=== PATIENT | male | born 1995 | race Caucasian/White ===

== ENCOUNTER 2017-02-16 00:06 | Emergency (ER) | payer BC ==
[2017-02-16] MEDS ORDERED: ONDANSETRON 4 MG/2 ML VIAL IVP ONE (00:32)
[2017-02-16] MEDS ORDERED: fentaNYL 100 MCG/2 ML INJ IVP ONE (00:32)
[2017-02-16] MEDS ORDERED: fentaNYL 100 MCG/2 ML INJ ONE (00:33)
[2017-02-16] MEDS ORDERED: ONDANSETRON 4 MG/2 ML VIAL ONE (00:33)
--- NOTE | 2017-02-16 01:05 | EDPHY ---
H & P Stated Complaint: Right Knee Dislocation Time Seen by Provider: 02/16/17 00:15 HPI/ROS: Chief Complaint: Right knee pain HPI: 21-year-old male was at a club dancing tonight when he twisted his leg and felt a pop in his right knee with severe pain. He noticed significant deformity and. That his kneecap was out of place. He has been unable to walk since. He has been drinking several beers this evening. Last was about 45 minutes prior to arrival. Patient also last ate about 4 hours ago. Denies prior injuries. Did not fall. Did not hit his head. ROS: 10 point Review of Systems is negative except as noted in the HPI. PMH: None Medications: None Allergies: None Social History: No smoking, occasional alcohol, no recreational drug use Family History: non-contributory Physical Exam: Gen: Awake, Alert, No Distress HEENT: Nose: no rhinorrhea Eyes: PERRLA, EOMI Mouth: Moist mucosa Neck: Supple, no JVD Chest: nontender, lungs clear to auscultation Heart: S1, S2 normal, no murmur Abd: Soft, non-tender, no guarding Back: no CVA tenderness, no midline tenderness Ext: no edema, right knee is held in flexion. There is a marked deformity of his patella consistent with patellar dislocation. DP and PT pulses are normal. Skin: no rash Neuro: CN II-XII intact, Sensation grossly intact, Strength 5/5 in bilateral upper and lower extremities - Personal History Current Tetanus Diphtheria and Acellular Pertussis (TDAP): Yes - Medical/Surgical History Hx Asthma: No Hx Chronic Respiratory Disease: No Hx Diabetes: No Hx Cardiac Disease: No Hx Renal Disease: No Hx Cirrhosis: No Hx Alcoholism: No Hx HIV/AIDS: No Hx Splenectomy or Spleen Trauma: No Other PMH: adhd,pneumonia, DEPRESSION, anxiety, bipolar - Social History Smoking Status: Never smoked Constitutional: Initial Vital Signs Temperature (C) 36.7 C 02/16/17 00:10 Heart Rate 87 02/16/17 00:10 Respiratory Rate 20 02/16/17 00:10 Blood Pressure 122/87 H 02/16/17 00:10 O2 Sat (%) 97 02/16/17 00:10 O2 Delivery Mode Room Air Allergies/Adverse Reactions: No Known Allergies Allergy (Unverified 12/13/15 17:10) Home Medications: Medication Instructions Recorded buPROPion XL [Wellbutrin 150mg XL] 300 mg PO DAILY 04/29/16 traZODone [traZODONE 100MG (*)] 100 mg PO HS 04/29/16 Dextroamphetamine Sulfate 10 mg PO TID 04/30/16 [Dexedrine] PARoxetine CR [Paxil Cr 25mg (*)] 25 mg PO DAILY 04/30/16 PARoxetine HCL [Paxil Cr] 12.5 mg PO DAILY 04/30/16 Medical Decision Making Procedures: Procedure: Procedural sedation. A pre-sedation evaluation was completed on the patient at 0100. Patient is an appropriate candidate for procedural sedation. The risks of the sedation were discussed with the patient. A time out was completed. The patient was sedated with ketamine, 100 mg. The patient was monitored with continuous pulse oximetry and radiation monitor. There were no complications and no significant hypoxemia. I remained at the bedside for the sedation. The total time I spent in the procedural sedation was 20 minutes. Procedure: Dislocation reduction. The dislocation of the right patella was reduced using leg extension and medial pressure technique without complications. Post reduction the patient's neurovascular exam is normal.Post reduction x-ray demonstrates reduction of the joint to the anatomic position. The procedure was performed by myself. ED Course/Re-evaluation: Patient tolerated sedation without any complications. Postreduction x-rays revealed no abnormalities. He was placed in a knee immobilizer and given crutches and instructions to follow up with Orthopedics next week. - Data Points Medications Given: Discontinued Medications Fentanyl (Sublimaze) 100 mcg IVP EDNOW ONE Stop: 02/16/17 00:33 Last Admin: 02/16/17 00:38 Dose: 100 mcg Ondansetron HCl (Zofran) 4 mg IVP EDNOW ONE Stop: 02/16/17 00:33 Last Admin: 02/16/17 00:39 Dose: 4 mg Departure - Departure Disposition: Home, Routine, Self-Care Clinical Impression: Patellar dislocation Condition: Good Instructions: Patellar Dislocation (ED), Knee Immobilizer (ED), Crutch Instructions (ED) Additional Instructions: Follow up with Orthopedics in 3-4 days for re-evaluation. Return to the emergency depart for increasing pain, numbness, tingling, or any other concerns. Referrals: Patient,NotPresent [Unknown] - As per Instructions Christiano Barrientos MD [Medical Doctor] - As per Instructions
[2017-02-16] MEDS ORDERED: PROPOFOL 200 MG/20 ML VIAL ONE ×2 (01:35→02:04)
[2017-02-16] MEDS ORDERED: KETAMINE 100 MG/10 ML SYR IVP ONE ×2 (02:04→02:11)
[2017-02-16] MEDS ORDERED: MIDAZOLAM 2 MG/2 ML VIAL ONE (02:12)
[2017-02-16] MEDS ORDERED: MIDAZOLAM 2 MG/2 ML VIAL IVP ONE (02:20)
[2017-02-16 03:10] VITALS: RESP 18
[2017-02-16 03:37] VITALS: BP 147/78; PULSE 105; TEMP 99.3; O2SAT 92
== END 2017-02-16 03:40 | disposition home or self-care (01) ==
LOC: EDUNIT#
PROC: 0QSDXZZ Reposition Right Patella, External Approach (ICD-10-PCS; principal; 2017-02-16)
DX: S83.014A Lateral dislocation of right patella, initial encounter (principal); X58.XXXA Exposure to other specified factors, initial encounter
CPT/HCPCS: 96374; J2250; J2405; J2704; J3010; L1830

== ENCOUNTER 2017-07-13 21:24 | Emergency (ER) | payer BC ==
[2017-07-13 21:30] VITALS: O2SAT 97
[2017-07-13] MEDS ORDERED: CEPHALEXIN 500MG PREPACK#4 BTL TAKEHOME ONE (22:08)
--- NOTE | 2017-07-13 22:08 | EDPHY ---
H & P Stated Complaint: right pinky infection- injury on 07/09/17 Time Seen by Provider: 07/13/17 21:38 HPI/ROS: Chief complaint: Right pinky finger infection History of present illness: This is a 21-year-old male who presents to the emergency department concerned he has a right pinky finger injury. Patient states approximately 3 days ago he tripped and fell and cut the pad of his pinky finger. He cleaned off and put Neosporin on it. However now she is developing some pustular discharge on the wound. He is concerned is becoming infected. He denies actual pain. He is still flex and extend the finger well. No abnormal coolness or paresthesias in the finger. No other injuries reported. His tetanus is up-to-date. - Personal History Current Tetanus Diphtheria and Acellular Pertussis (TDAP): Yes - Medical/Surgical History Hx Asthma: No Hx Chronic Respiratory Disease: No Hx Diabetes: No Hx Cardiac Disease: No Hx Renal Disease: No Hx Cirrhosis: No Hx Alcoholism: No Hx HIV/AIDS: No Hx Splenectomy or Spleen Trauma: No Other PMH: adhd,pneumonia, DEPRESSION, anxiety, bipolar - Social History Smoking Status: Never smoked - Physical Exam Exam: General: Alert, nontoxic Skin: There is an abrasion to the right 5th finger. There is pustular discharge on top of the wound. However the underlying tissue is without erythema or edema. There is no surrounding erythema or edema. No red streaking up the finger. Musculoskeletal: He is flexing and extending the right 5th finger in the DIP, PIP and MCP joint well. Vascular: Capillary refill brisk in the right 5th finger Neurologic: Sensation intact in the right 5th finger Constitutional: Initial Vital Signs Temperature (C) 37.6 C 07/13/17 21:28 Heart Rate 130 H 07/13/17 21:28 Respiratory Rate 20 07/13/17 21:28 Blood Pressure 161/104 H 07/13/17 21:28 O2 Sat (%) 97 07/13/17 21:28 O2 Delivery Mode Room Air Allergies/Adverse Reactions: No Known Allergies Allergy (Unverified 07/13/17 21:27) Home Medications: Medication Instructions Recorded buPROPion XL [Wellbutrin 150mg XL] 300 mg PO DAILY 04/29/16 traZODone [traZODONE 100MG (*)] 100 mg PO HS 04/29/16 Dextroamphetamine Sulfate 10 mg PO TID 04/30/16 [Dexedrine] PARoxetine CR [Paxil Cr 25mg (*)] 25 mg PO DAILY 04/30/16 PARoxetine HCL [Paxil Cr] 12.5 mg PO DAILY 04/30/16 Cephalexin [Keflex] 500 mg PO QID 6 Days cap 07/13/17 Medical Decision Making ED Course/Re-evaluation: Patient seen under the supervision of my secondary supervising physician Dr. Amaury Rivas. Patient presents to the emergency department for evaluation of a wound to his left 5th finger which he is concerned is getting infected. It does appear to be a superficial wound. It has been cleaned and dressed. I have discussed topical care. I will place him on a course of antibiotic to ensure it does not progress. Home care is discussed. Return precautions are given. Patient voiced understanding and agreement with plan. Differential Diagnosis: Included but not limited to superficial infection, cellulitis, abscess, infectious tenosynovitis, lymphangitis - Data Points Medications Given: Discontinued Medications Cephalexin (Keflex 500 Mg Prepack#4) [facility] Reason: Protocol Stop: 07/13/17 22:09 Last Admin: 07/13/17 22:20 Dose: 1 btl Departure - Departure Disposition: Home, Routine, Self-Care Clinical Impression: Cellulitis, finger Qualifiers: Laterality: right Qualified Code(s): L03.011 - Cellulitis of right finger Condition: Good Instructions: Cephalexin (By mouth), Cellulitis (ED), Acute Wounds (ED) Additional Instructions: Follow-up with a primary care doctor for recheck Take antibiotics as prescribed until finished even if feeling better Keep wound clean with soap and water and apply Neosporin 2-3 times daily If symptoms worsen or new symptoms develop return to the emergency room for recheck Referrals: NONE *PRIMARY CARE P,. [Primary Care Provider] - As per Instructions Adriana Basilio MD [[facility] Primary Care Provider] - As per Instructions Prescriptions: Cephalexin [Keflex] 500 mg PO QID 6 Days cap
[2017-07-13 22:24] VITALS: BP 158/96; PULSE 118; RESP 16; TEMP 97.9
== END 2017-07-13 22:24 | disposition home or self-care (01) ==
DX: L03.011 Cellulitis of right finger (principal)

== ENCOUNTER → 2018-02-17 | Day surgery (SDC) | payer BC ==
[~2018-02-17] MED LIST: LIDOCAINE 1% 300 MG/30 ML SDV ONE
== END | disposition home or self-care (01) ==
LOC: FIMAGING 08:40
PROVIDERS: ATTEND Internal Medicine Infectious Disease
PROC: 02HV33Z Insertion of Infusion Device into Superior Vena Cava, Percutaneous Approach (ICD-10-PCS; principal; 2018-02-17)
DX: A69.22 Other neurologic disorders in Lyme disease (principal); Z79.2 Long term (current) use of antibiotics
CPT/HCPCS: 36569; 77001; C1751

== ENCOUNTER 2018-04-12 17:59 | Emergency (ER) | payer BC ==
[2018-04-12 18:06] VITALS: BP 136/77
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
== END 2018-04-12 18:52 | disposition home or self-care (01) ==
PROC: 0HQ0XZZ Repair Scalp Skin, External Approach (ICD-10-PCS; principal; 2018-04-12)
DX: S01.01XA Laceration without foreign body of scalp, initial encounter (principal); F10.920 Alcohol use, unspecified with intoxication, uncomplicated; Y00.XXXA Assault by blunt object, initial encounter